=== PATIENT | male | born 1990 | race Caucasian/White ===

== ENCOUNTER 2024-02-19 18:05 | Emergency (ER) | payer BC ==
[2024-02-19] MEDS: Sodium Chloride 0.9% 1,000 ML IV ONE (18:35)
[2024-02-19] MEDS: Morphine 4 MG/ML Syringe IVPUSH ONE (18:39)
[2024-02-19] MEDS: Ondansetron 4 MG/2 ML SDV IVPUSH ONE (18:39)
[2024-02-19] MEDS: HYDROmorphone 1 MG/ML Syringe IVPUSH ONE (18:40)
[2024-02-19] MEDS: Lidocaine 1% 5 ML VIAL INJECT ONE (19:14)
== END 2024-02-19 21:59 | disposition home or self-care (01) ==
LOC: MW.ED 18:05
DX: S43.005A Unspecified dislocation of left shoulder joint, initial encounter (principal); Z75.8 Other problems related to medical facilities and other health care; X50.1XXA Overexertion from prolonged static or awkward postures, initial encounter; Y93.89 Activity, other specified
CPT/HCPCS: 23650; 73030; 96361; 96374; 96375; 99283; J2270; J2405; J7030; 99284; J3490

== ENCOUNTER 2024-04-12 06:06 | Day surgery (SDC) | payer BC ==
[2024-04-12] MEDS: Lactated Ringers 1,000 ML IV SCH (06:50)
[2024-04-12] MEDS ORDERED: fentaNYL 100 MCG/2 ML SDV ONE (07:09)
[2024-04-12] MEDS ORDERED: dexmedeTOMIDine HCl 200 MCG/2 ML SDV ONE (07:09)
[2024-04-12] MEDS ORDERED: Water For Injection, Sterile 20 ML ONE (07:09)
[2024-04-12] MEDS ORDERED: Propofol 200 MG/20 ML SDV ONE (07:09)
[2024-04-12] MEDS ORDERED: Rocuronium Bromide 50 MG/5 ML Syringe ONE (07:09)
[2024-04-12] MEDS ORDERED: Lidocaine 1% 5 ML VIAL ONE (07:09)
[2024-04-12] MEDS ORDERED: fentaNYL 50 MCG/ML SDV IVPUSH PRN (07:14)
[2024-04-12] MEDS ORDERED: Albuterol 0.083% 2.5 MG/3 ML Neb Soln NEB PRN (07:14)
[2024-04-12] MEDS ORDERED: HYDROmorphone 1 MG/ML Syringe IVPUSH PRN (07:14)
[2024-04-12] MEDS ORDERED: Morphine 2 MG/ML SYRINGE IVPUSH PRN (07:14)
[2024-04-12] MEDS ORDERED: Naloxone 0.4 MG/ML SDV IVPUSH PRN (07:14)
[2024-04-12] MEDS ORDERED: droPERidol 5 MG/2 ML SDV IVPUSH PRN (07:14)
[2024-04-12] MEDS ORDERED: Ondansetron 4 MG/2 ML SDV IVPUSH PRN (07:14)
[2024-04-12] MEDS ORDERED: Metoclopramide 10 MG/2 ML SDV IVPUSH PRN (07:14)
[2024-04-12] MEDS ORDERED: Ropivacaine 0.5% 5 MG/ML 30 ML SDV ONE (07:18)
[2024-04-12] MEDS ORDERED: EPINEPHrine 1 MG/1 ML Amp ONE (07:34)
[2024-04-12] MEDS ORDERED: Bupivacaine 0.5%/EPINEPHrine 1:200,000 30 ML SDV ONE (07:34)
[2024-04-12] MEDS ORDERED: ceFAZolin 2 GM in Sodium Chloride 0.9% 50 ML IV ONE (08:00)
[2024-04-12] MEDS ORDERED: ceFAZolin 2 GM Vial ONE (08:04)
[2024-04-12] MEDS ORDERED: Ondansetron 4 MG/2 ML SDV ONE (08:05)
[2024-04-12] MEDS ORDERED: Dexamethasone 4 MG/ML 5 ML MDV ONE (08:05)
[2024-04-12] MEDS ORDERED: Phenylephrine HCl In 0.9% NaCl 1 MG/10 ML Syringe ONE (08:06)
[2024-04-12] MEDS ORDERED: ePHEDrine 50 MG/ML SDV ONE (08:26)
[2024-04-12] MEDS ORDERED: Sugammadex Sodium 200 MG/2 ML VIAL IV ONE (08:50)
[2024-04-12] MEDS ORDERED: Ketorolac 30 MG/ML SDV ONE (08:50)
== END 2024-04-12 10:49 | disposition home or self-care (01) ==
LOC: MW.SDS 06:06
PROVIDERS: ATTEND Orthopaedic Surgery
DX: S43.432A Superior glenoid labrum lesion of left shoulder, initial encounter (principal); M24.012 Loose body in left shoulder; M24.112 Other articular cartilage disorders, left shoulder; M25.319 Other instability, unspecified shoulder; Z88.0 Allergy status to penicillin
CPT/HCPCS: 29806; 64415; J0131; J0171; J0690; J1100; J1885; J2371; J2405; J2704; J2795; J3010; J3490; J7120; 01630